=== PATIENT | female | born 1990 | race Caucasian/White ===

== ENCOUNTER 2017-02-21 20:04 | Emergency (ER) | payer OTHER ==
--- NOTE | 2017-02-21 22:09 | DIAGNOSTIC IMAGING REPORT ---
PROCEDURE: XR FINGER - LEFT (thumb). INDICATION: Left thumb pain. TECHNIQUE: Three views. COMPARISON: None. FINDINGS: There is moderate soft tissue swelling of the proximal left thumb. Osseous structures and joint spaces are normal. No evidence of radiopaque foreign body. IMPRESSION: 1. Soft tissue swelling of the proximal left thumb.
--- NOTE | 2017-02-21 22:31 | ED NURSING NOTES ---
Clinical Report - Nurses [facility] [address] [place] [address] 02/21/2017 20:03 Patient: DOC FONG TRIAGE Triage time 20:51. Acuity: LEVEL 4. Chief Complaint: LEFT UPPER EXTREMITY PAIN and SWELLING. Location of symptoms- left thumb. 21:02 02/21/17. YONG COMA SCORE: [place] Coma Scale: 15- eyes open spontaneously (4); best verbal response- oriented x 4 (5); best motor response- obeys commands (6). --21:02 America Salinas R.N. 20:53 02/21/17. BP: 119/67 taken on the right arm, while sitting. HR: 71. RR: 14. O2 saturation: 98% on room air. Temp: 98.1 F. Pain level now: 01/15. --21:02 America Salinas R.N. Weight: 88.4 kg stated. Height/Length: 66 inches Per Patient. BMI: 31.5. --20:59 America Salinas R.N. Medications Control Pills. --20:57 America Salinas R.N. Allergies Amoxicillin. --20:57 America Salinas R.N. History Arrived by private vehicle. Historian: patient. Accompanied by family. Primary physician (No PCP). No injury occurred. This occurred (Patient reports the swelling in her thumb began a week ago, and the pain began today.). ( Patient states she is unaware of any injury to her thumb.). 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 PAST MEDICAL HX: Tetanus status: up-to-date. Immunizations: up-to-date. Denies current . SOCIAL HX: Heavy tobacco smoker (cigarette)- less than 1 pack per day. Occasional alcohol use. No drug use. FALL RISK ASSESSMENT: Fall risk assessment completed. No fall risk identified. NUTRITIONAL RISK ASSESSMENT: The nutritional risk assessment revealed no deficiencies. FUNCTIONAL ASSESSMENT: Functional assessment: no impairments noted. LEARNING NEEDS ASSESSMENT: The learning needs assessment revealed no barriers. SKIN INTEGRITY ASSESSMENT: Skin integrity risk assessment completed. No skin integrity risk identified. --21:02 America Salinas R.N. PROBLEMS: Frequent Ear Infections. Otitis Media. URI. Soft Tissue Foreign Body. Tetanus Status. Viral Disease. Immunizations. Back Injury. Back Pain. Lumbar Strain. LNMP - Last Normal Menstrual Period. --20:57 America Salinas R.N. ADDITIONAL SURGERIES: . --20:57 America Salinas R.N. Interventions ID band on patient. To treatment room. --21:02 America Salinas R.N. PHYSICAL ASSESSMENT 21:02/21/17. Ambulatory to room. GENERAL / NEURO / PSYCH: Oriented X 4. Alert. Appears in no acute distress. EXTREMITIES: Extremities exhibit normal ROM. Left thumb: tenderness and swelling. SKIN: Skin intact. Skin is warm and dry. --21:02 America Salinas R.N. NURSING PROGRESS NOTES 21:02/21/17. Call light placed in reach. Bed placed in lowest position. Brakes of bed on. --21:02 America Salinas R.N. ( x ray in room). --21:06 America Salinas R.N. 21:58 02/21/17. Patient and family informed about reason for wait and about plan of care. --21:58 America Salinas R.N. 21:57 02/21/17. BP: 132/66 taken on the right arm, while sitting. HR: 66. RR: 14. O2 saturation: 100% on room air. Pain level now: 5. --21:58 America Salinas R.N. DISPOSITION / DISCHARGE 21:57 02/21/17. BP: 132/66 taken on the right arm, while sitting. HR: 66. RR: 14. O2 saturation: 100% on room air. Pain level now: 5/10. --22:33 America Salinas R.N. 22:34 02/21/17. No learning barriers present. Discharge instructions provided and reviewed with the patient and spouse. Reviewed warnings. Reviewed medication(s). Treatments reviewed. Activity restrictions reviewed. Patient and spouse verbalized understanding. Written instructions provided in Qatari. The patient was discharged home and accompanied by spouse. She left the Emergency Department ambulatory and via private vehicle. Spouse driving. --22:34 America Salinas R.N. Departure time: 22:37. --22:37 America Salinas R.N. 21:57 02/21/17. Temp: deferred. --04:50 America Salinas R.N. Locked/Released at 02/22/2017 4:50 by America Salinas R.N.
--- NOTE | 2017-02-21 22:31 | ED ORDER SUMMARY ---
..... Patient: DOC FONG OrderSheet [facility] VisitID: [id number] [address] [place] [address] 26y, F Registration Date/Time: 02/21/2017 ORDER SHEET Weight: 88.4 kg (stated) Allergies: Amoxicillin GENERAL ORDERS: Finger Left (1) Urgent (21:00 02/21/2017 Charu A.R.N.P.) ([facility] 21:11 [facility]) (21:48 [facility]) MEDICATION ORDERS: IV FLUIDS: ORDER SHEET NOTES: [Electronically signed by Marly AcevedoR.N.PKeanu (22:38 02/21/2017)] [Electronically signed by America Salinas R.N. (04:50 02/22/2017)] [Electronically locked/signed by America Salinas R.N. (04:50 02/22/2017)]
--- NOTE | 2017-02-21 22:31 | ED NURSING NOTES ---
Clinical Report - Nurses [facility] [address] [place] [address] 02/21/2017 20:03 Patient: DOC FONG TRIAGE Triage time 20:51. Acuity: LEVEL 4. Chief Complaint: LEFT UPPER EXTREMITY PAIN and SWELLING. Location of symptoms- left thumb. 21:02 02/21/17. YONG COMA SCORE: [place] Coma Scale: 15- eyes open spontaneously (4); best verbal response- oriented x 4 (5); best motor response- obeys commands (6). --21:02 America Salinas R.N. 20:53 02/21/17. BP: 119/67 taken on the right arm, while sitting. HR: 71. RR: 14. O2 saturation: 98% on room air. Temp: 98.1 F. Pain level now: 01/15. --21:02 America Salinas R.N. Weight: 88.4 kg stated. Height/Length: 66 inches Per Patient. BMI: 31.5. --20:59 America Salinas R.N. Medications Control Pills. --20:57 America Salinas R.N. Allergies Amoxicillin. --20:57 America Salinas R.N. History Arrived by private vehicle. Historian: patient. Accompanied by family. Primary physician (No PCP). No injury occurred. This occurred (Patient reports the swelling in her thumb began a week ago, and the pain began today.). ( Patient states she is unaware of any injury to her thumb.). 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 PAST MEDICAL HX: Tetanus status: up-to-date. Immunizations: up-to-date. Denies current . SOCIAL HX: Heavy tobacco smoker (cigarette)- less than 1 pack per day. Occasional alcohol use. No drug use. FALL RISK ASSESSMENT: Fall risk assessment completed. No fall risk identified. NUTRITIONAL RISK ASSESSMENT: The nutritional risk assessment revealed no deficiencies. FUNCTIONAL ASSESSMENT: Functional assessment: no impairments noted. LEARNING NEEDS ASSESSMENT: The learning needs assessment revealed no barriers. SKIN INTEGRITY ASSESSMENT: Skin integrity risk assessment completed. No skin integrity risk identified. --21:02 America Salinas R.N. PROBLEMS: Frequent Ear Infections. Otitis Media. URI. Soft Tissue Foreign Body. Tetanus Status. Viral Disease. Immunizations. Back Injury. Back Pain. Lumbar Strain. LNMP - Last Normal Menstrual Period. --20:57 America Salinas R.N. ADDITIONAL SURGERIES: . --20:57 America Salinas R.N. Interventions ID band on patient. To treatment room. --21:02 America Salinas R.N. PHYSICAL ASSESSMENT 21:02/21/17. Ambulatory to room. GENERAL / NEURO / PSYCH: Oriented X 4. Alert. Appears in no acute distress. EXTREMITIES: Extremities exhibit normal ROM. Left thumb: tenderness and swelling. SKIN: Skin intact. Skin is warm and dry. --21:02 America Salinas R.N. NURSING PROGRESS NOTES 21:02/21/17. Call light placed in reach. Bed placed in lowest position. Brakes of bed on. --21:02 America Salinas R.N. ( x ray in room). --21:06 America Salinas R.N. 21:58 02/21/17. Patient and family informed about reason for wait and about plan of care. --21:58 America Salinas R.N. 21:57 02/21/17. BP: 132/66 taken on the right arm, while sitting. HR: 66. RR: 14. O2 saturation: 100% on room air. Pain level now: 5. --21:58 America Salinas R.N. DISPOSITION / DISCHARGE 21:57 02/21/17. BP: 132/66 taken on the right arm, while sitting. HR: 66. RR: 14. O2 saturation: 100% on room air. Pain level now: 5/10. --22:33 America Salinas R.N. 22:34 02/21/17. No learning barriers present. Discharge instructions provided and reviewed with the patient and spouse. Reviewed warnings. Reviewed medication(s). Treatments reviewed. Activity restrictions reviewed. Patient and spouse verbalized understanding. Written instructions provided in Portuguese. The patient was discharged home and accompanied by spouse. She left the Emergency Department ambulatory and via private vehicle. Spouse driving. --22:34 America Salinas R.N. Departure time: 22:37. --22:37 America Salinas R.N. 21:57 02/21/17. Temp: deferred. --04:50 America Salinas R.N. Locked/Released at 02/22/2017 4:50 by America Salinas R.N.
--- NOTE | 2017-02-21 22:31 | ED ORDER SUMMARY ---
..... Patient: DOC FONG OrderSheet [facility] VisitID: [id number] [address] [place] [address] 26y, F Registration Date/Time: 02/21/2017 ORDER SHEET Weight: 88.4 kg (stated) Allergies: Amoxicillin GENERAL ORDERS: Finger Left (1) Urgent (21:00 02/21/2017 Charu A.R.N.P.) ([facility] 21:11 [facility]) (21:48 [facility]) MEDICATION ORDERS: IV FLUIDS: ORDER SHEET NOTES: [Electronically signed by Marly AcevedoR.N.PKeanu (22:38 02/21/2017)] [Electronically signed by America Salinas R.N. (04:50 02/22/2017)] [Electronically locked/signed by America Salinas R.N. (04:50 02/22/2017)]
--- NOTE | 2017-02-21 22:31 | ED CLINICAL REPORT ---
Clinical Report - Physicians/Mid Levels [facility] [address] [place] [address] 02/21/2017 20:03 Patient: DOC FONG Time Seen: 2049; upon arrival, initial patient contact, initial documentation, patient care assumed. Arrived- By private vehicle. Historian- patient and family. HISTORY OF PRESENT ILLNESS Chief Complaint: UPPER EXTREMITY PAIN and SWELLING. Severity is described as being moderate in degree. The quality is noted to be "pain". No radiation. This started about 1 weeks ago and is still present. Modifying factors- worsened by movement of fingers. (L thumb). No chest pain, difficulty breathing, sensory loss, motor loss or repetitive hand use at work. She has had swelling, but not had redness. Patient denies an injury. Similar symptoms previously: None. Recent medical care: Not recently seen/assessed. REVIEW OF SYSTEMS All systems otherwise negative, except as recorded above. PAST HISTORY See nurses notes. PROBLEMS: Frequent Ear Infections. Otitis Media. URI. Soft Tissue Foreign Body. Tetanus Status. Viral Disease. Immunizations. Back Injury. Back Pain. Lumbar Strain. LNMP - Last Normal Menstrual Period. --20:57 America Salinas R.N. ADDITIONAL SURGERIES: . --20:57 America Salinas R.N. SOCIAL HISTORY Never smoker. Occasional alcohol use. History of occasional drug use: marijuana. No recent travel. Is a local resident. FAMILY HISTORY Negative. ADDITIONAL NOTES The nursing notes have been reviewed with agreement regarding the chief complaint, HPI, ROS, PMH and patient medications and allergies. PHYSICAL EXAM Vital Signs: 02/21/2017 20:53 BP: 119/67. HR: 71. RR: 14. O2 saturation: 98%. Temp: 98.1 F. Pain level now: 5/10. Have been reviewed as normal and appear to be correct. Appearance: Alert. Oriented X3. No acute distress. Eyes: Pupils equal, round and reactive to light. Eyes normal inspection. Neck: Normal inspection. Neck supple. Respiratory: No respiratory distress. Skin: Skin intact. Skin warm and dry. Normal skin color. Normal skin turgor. Extremities: Upper extremities abnormal to inspection. Upper extremities do not exhibit normal ROM. Upper extremity tenderness. No upper extremity edema. Left thumb: mild tenderness and swelling; limited movement secondary to pain (diminished flexion). Neurovascular intact distally. No erythema, laceration, abrasion, ecchymosis or puncture wound. No foreign body or deformity. No localization, subungual hematoma or amputation present. Extremities otherwise negative. Neuro: Oriented X 3. No motor deficit. No sensory deficit. LABS, X-RAYS, AND EKG X-Rays: Left digit(s) negative. Lt UE Digits X-ray: (IMPRESSION: 1. Soft tissue swelling of the proximal left thumb. Electronically Final signed by:Konstantin Faustin MD 02/21/2017 10:04:45 PM). The X-rays were interpreted by the radiologist and contemporaneously by me. PROGRESS AND PROCEDURES Patient counseled in person regarding the patient's stable condition, test results and diagnosis. 22:28. Differential Diagnosis: Other possible considerations: fx, sprain, cyst, abscess, tumor. Above considerations are based on history, physical exam and X-Ray data. Differential diagnosis was discussed with patient. Disposition: Discharged home in good and unchanged condition (22:30). Condition: good and stable. CLINICAL IMPRESSION Acute upper extremity pain involving the left thumb. INSTRUCTIONS Warnings: GENERAL WARNINGS: Return or contact your physician immediately if your condition worsens or changes unexpectedly, if not improving as expected, or if other problems arise. Specifically return if problem worsens. Follow-up: Follow up with your doctor in about one week as needed. Call for an appointment. Summary of care provided to patient. Understanding of the discharge instructions verbalized by patient. (Electronically signed by Marly Acevedo A.R.N.P. 02/21/2017 22:38)
--- NOTE | 2017-02-22 04:51 | ED MED RECONCILIATION SUMMARY ---
Patient: DOC FONG Medication Reconciliation Report [facility] VisitID: [id number] [address] [place] [address] 26y, F Registration Date/Time: 02/21/2017 Weight: 88.4 kg Height/Length: 66 in. BMI: 31.5 ALLERGIES: Amoxicillin The patient's Home Medications are listed below: THE FOLLOWING MEDICATIONS NEED TO BE RECONCILED: Control Pills The source(s) of the original Home Medication information: Not obtained. The following Medications were given to the patient in the Emergency Department: None. The following Medications were prescribed to the patient: None.
--- NOTE | 2017-02-22 04:51 | ED MAR SUMMARY ---
..... Medication Administration Record [facility] [address] [place], [place] [id number] Patient: FONG DOC Waylon Visit ID: [id number] 26y, F Weight: 88.4 kg Height/Length: 66 in BMI: 31.5 ALLERGIES: Amoxicillin
--- NOTE | 2017-02-22 04:51 | ED MAR SUMMARY ---
..... Medication Administration Record [facility] [address], [place] [id number] Patient: FONG DOC Waylon Visit ID: [id number] 26y, F Weight: 88.4 kg Height/Length: 66 in BMI: 31.5 ALLERGIES: Amoxicillin
--- NOTE | 2017-02-22 04:51 | ED MED RECONCILIATION SUMMARY ---
Patient: DOC FONG Medication Reconciliation Report [facility] VisitID: [id number] [address] [place] [address] 26y, F Registration Date/Time: 02/21/2017 Weight: 88.4 kg Height/Length: 66 in. BMI: 31.5 ALLERGIES: Amoxicillin The patient's Home Medications are listed below: THE FOLLOWING MEDICATIONS NEED TO BE RECONCILED: Control Pills The source(s) of the original Home Medication information: Not obtained. The following Medications were given to the patient in the Emergency Department: None. The following Medications were prescribed to the patient: None.
--- NOTE | 2017-02-22 04:51 | ED DISCHARGE INSTRUCTIONS ---
Patient: DOC FONG General Instructions [facility] VisitID: [id number] [address] [place] [address] 26y, F Registration Date/Time: 02/21/2017 Acute upper extremity pain involving the left thumb. INSTRUCTIONS Warnings: GENERAL WARNINGS: Return or contact your physician immediately if your condition worsens or changes unexpectedly, if not improving as expected, or if other problems arise. Specifically return if problem worsens. Follow-up: Follow up with your doctor in about one week as needed. Call for an appointment. Summary of care provided to patient. Understanding of the discharge instructions verbalized by patient. ADDITIONAL INFORMATION Osteoarthritis Osteoarthritis (also called Degenerative Joint Disease) is the most common form of arthritis in adults over 50. It is not the same as Rheumatoid Arthritis. The exact cause is not known but may be related to excess wear and tear on the joint over a long period of time. Prior injury to that joint, or repeated stress on a joint can also cause this type of arthritis. Osteoarthritis most often affects the hands, knees, spine and hips (in that order). The most common symptoms are joint stiffness, pain and swelling. Home Care: When a joint is more sore than usual, rest that joint for a day or two. Heat is very helpful. This can be provided by taking hot baths, applying a heating pad for up to 30 minutes at a time. Because symptoms are usually worse in the morning, many patients like to take a hot bath just after awakening to relax the muscle and soothe the joints. Exercise is the most important part of home treatment for osteoarthritis. This prevents the muscles and ligaments around the joint from becoming weak and helps maintain the full range of joint motion. This limits further damage to the joint. If you are overweight, this puts a lot of extra strain on weight-bearing joints of the lower back, hips, knees, feet and ankles. Losing weight will improve your arthritis symptoms in these joints. Talk to your doctor about a safe and effective weight loss program for yourself. Anti-inflammatory medicine such as ibuprofen (Advil, Motrin) or naproxen (Aleve) is often used to treat this condition. If this alone is not helping, your doctor may prescribe a stronger medicine. If narcotic pain medicines have been prescribed, they should be used in addition to anti-inflammatory drugs and only for severe pain. Follow Up with your doctor as advised by our staff. Get Prompt Medical Attention if any of the following occur: Redness or swelling of a painful joint Fever of 100.4F (38C) or higher, or as directed by your healthcare provider Worsening joint pain You have been given the following additional information: Osteoarthritis (Electronically signed by Marly Acevedo A.R.N.P. 02/21/2017 22:38)
== END 2017-02-21 22:37 | disposition home or self-care (01) ==
LOC: ED SRH 20:04
DX: M79.642 Pain in left hand (principal); Z88.1 Allergy status to other antibiotic agents